=== PATIENT | male | born 1965 | race Caucasian/White ===

== ENCOUNTER 2020-01-23 23:42 | Emergency (ER) | payer OTHER ==
[~2020-01-23] VITALS: Ht 172.7 cm; Wt 79.4 kg
[2020-01-23 23:53] VITALS: BP 120/87
--- NOTE | 2020-01-23 23:53 | NUR ---
ED Nurse Note: Pt steffanie from hotel room [place] lower abd pain 8/10 x 1 month. Per EMS, pt was recently at [facility] earlier today for same complaint. ERMD contacted at [facility] for peer to peer. Pt aao x 4, ambulates with steady gait, skin intact. Pt placed in gown in bed. Awaiting ERMD at bedside. Awaiting further orders.
--- NOTE | 2020-01-24 00:01 | NUR ---
ED Nurse Note: ERMD at bedside
--- NOTE | 2020-01-24 00:14 | Emergency Room Report ---
History of Present Illness General Chief Complaint: Abdominal Pain Source: Patient Present Illness HPI This is a 54-year-old male with a history of chronic pain. 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 He also has recurrent pleural effusion. Patient presents with chief complaint abdominal pain and weakness. He said he is having nausea vomiting and diarrhea. Onset today. He said he is out of his Dilaudid. Denies any fever or chills. Pain is 10 out of 10. He was just at [facility] today and discharged an hour and a half ago. He called 911 from outside of a motel. I spoke with the ER doctor there. He had blood work done which showed hemoglobin of 8.3 which is that baseline. He was guaiac negative with rectal exam. He was at [facility] on January 06. Patient was at [place] twice today. He complaining abdominal pain but was eating a sandwich. Here he was drinking orange juice. 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 COVID-19 Screening: Negative COVID-19 COVID-19 Testing Source: [facility] Patient History Past Medical History: see triage record, old chart reviewed Past Surgical History: other Pertinent Family History: none Social History: Denies: smoking Immunizations: other Reviewed Nursing Documentation: PMH: Agreed; PSxH: Agreed Review of Systems Eye: Denies: eye pain, blurred vision ENT: Denies: ear pain, nose congestion, throat swelling Respiratory: Denies: cough, shortness of breath Cardiovascular: Denies: chest pain, palpitations Gastrointestinal: Reports: abdominal pain, diarrhea, nausea, vomiting Musculoskeletal: Denies: back pain, joint pain Skin: Denies: rash Neurological: Denies: headache, numbness Endocrine: Denies: increased thirst, increased urine Hematologic/Lymphatic: Denies: easy bruising All Other Systems: negative except mentioned in HPI Physical Exam Vital Signs Date Time Temp Pulse Resp B/P (MAP) Pulse Ox O2 Delivery O2 Flow Rate FiO2 01/23/20 23:43 98.8 90 16 120/87 (98) 99 Room Air Vitals normal Sp02 EP Interpretation: reviewed, normal General Appearance: well appearing, no apparent distress, alert Head: normocephalic, atraumatic Eyes: bilateral eye PERRL, bilateral eye EOMI ENT: hearing grossly normal, normal pharynx Neck: full range of motion, supple, no meningismus Respiratory: chest non-tender, lungs clear, normal breath sounds Cardiovascular #1: regular rate, rhythm, no murmur Gastrointestinal: normal bowel sounds, no mass, no organomegaly, no bruit, non- distended, tenderness - diffuse, soft Musculoskeletal: back normal, normal range of motion, gait/station normal Psychiatric: mood/affect normal Medical Decision Making Homeless Attestation I, The treating physician, Dr Sukhwinder Bourne, has assessed and agrees that patient is medically stable for discharge to an outpatient disposition. Diagnostic Impression: Primary Impression: Abdominal pain Qualified Codes: R10.84 - Generalized abdominal pain Additional Impressions: Anemia Qualified Codes: D64.9 - Anemia, unspecified Chronic pain Qualified Codes: G89.4 - Chronic pain syndrome ER Course Presents with exacerbation of chronic abdominal pain. He is eating and drinking here without any problem. I see no need for further work-up since he just had blood work done an hour and a half ago at [facility]. He also said he has pleural effusion but oxygenation is 99 to 100% on room air. He was talking and joking with EMS and nursing staff here. I see no respiratory distress. I see no need for an acute intervention right now. Patient wanted his biliary stent removed. I told patient that we do not do that here in the ER. He needs to follow-up with At [facility]. On the [employer] system he has multiple prescriptions from different doctors for pain medication. He just had 50 tablets of Dilaudid filled on December 28. Last Vital Signs Date Time Temp Pulse Resp B/P (MAP) Pulse Ox O2 Delivery O2 Flow Rate FiO2 01/23/20 23:43 98.8 90 16 120/87 (98) 99 Room Air Status: unchanged Disposition: HOME, SELF-CARE Condition: Stable Referrals: NOT CHOSEN IPA/,REFERRING (PCP) Patient Instructions: Abdominal Pain, Adult Additional Instructions: Follow-up with your doctor in 7 days. Follow-up with your doctor for refill your medication and evaluation for removal of your stent if needed. Return if symptoms worsen. Sukhwinder Bourne MD Jan 24, 2020 00:14
[2020-01-24 00:22] VITALS: BP 125/82
--- NOTE | 2020-01-24 00:22 | NUR ---
ER DISCHARGE NOTE: Patient is cleared to be discharged home per ERMD, pt is aox4, 99% on room air, with stable vital signs. pt was given dc instructions, pt was able to verbalize understanding, pt id band removed without complications. pt is able to ambulate with steady gait. pt took all belongings.
== END 2020-01-24 00:22 | disposition home or self-care (01) ==
LOC: EDBD 23:42 → EMR 23:59
DX: R10.84 Generalized abdominal pain (principal); D64.9 Anemia, unspecified; G89.4 Chronic pain syndrome; R53.1 Weakness; R11.2 Nausea with vomiting, unspecified; R19.7 Diarrhea, unspecified
CPT/HCPCS: 99281

== ENCOUNTER 2020-01-24 01:36 | Emergency (ER) | payer OTHER ==
[~2020-01-24] VITALS: Ht 172.7 cm; Wt 79.4 kg
[2020-01-24 01:36] VITALS: BP 112/76
--- NOTE | 2020-01-24 01:36 | NUR ---
ED Nurse Note: Patient brought in by ambulance [id number] from [facility] d/t abdominal pain and nausea, pt was seen at [facility] and discharged home 1 hour prior to arrival. Patient aao x 4 and ambulatory. Patient states abdominal pain 9/. ERMD at bedside. Patient states he wants to go to [facility]. Patient stable during assessment.
--- NOTE | 2020-01-24 01:43 | Emergency Room Report ---
History of Present Illness General Chief Complaint: Abdominal Pain Source: Patient, Medical Record, EMS Present Illness HPI Is a 54-year-old male with a history of chronic pain. He was just here and was discharged. He called 911 about a couple blocks away. He complained abdominal pain. He was just discharged from here and in [facility]. Per EMS he called 911 frequently. Complaining of generalized abdominal pain 10 out of 10. Denies any fever chills claimed that he has nausea vomiting and diarrhea. It is 10 out of 10. He is out of his Dilaudid. 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 Patient History Past Medical History: see triage record, old chart reviewed Past Surgical History: other Pertinent Family History: none Social History: Denies: smoking Immunizations: other Reviewed Nursing Documentation: PMH: Agreed; PSxH: Agreed Nursing Documentation-PMH Hx Gastrointestinal Problems: Yes Review of Systems Eye: Denies: eye pain, blurred vision ENT: Denies: ear pain, nose congestion, throat swelling Respiratory: Denies: cough, shortness of breath Cardiovascular: Denies: chest pain, palpitations Gastrointestinal: Reports: abdominal pain, diarrhea, nausea, vomiting Musculoskeletal: Denies: back pain, joint pain Skin: Denies: rash Neurological: Denies: headache, numbness Endocrine: Denies: increased thirst, increased urine Hematologic/Lymphatic: Denies: easy bruising All Other Systems: negative except mentioned in HPI Physical Exam Vital Signs Date Time Temp Pulse Resp B/P (MAP) Pulse Ox O2 Delivery O2 Flow Rate FiO2 01/24/20 01:33 97.5 108 20 112/76 (88) 98 Room Air Vitals unremarkable Sp02 EP Interpretation: reviewed, normal General Appearance: well appearing, no apparent distress, alert Head: normocephalic, atraumatic Eyes: bilateral eye PERRL, bilateral eye EOMI ENT: hearing grossly normal, normal pharynx Neck: full range of motion, supple, no meningismus Respiratory: chest non-tender, lungs clear, normal breath sounds Cardiovascular #1: regular rate, rhythm, no murmur Gastrointestinal: normal bowel sounds, no mass, no organomegaly, no bruit, non- distended, tenderness - Diffuse Musculoskeletal: back normal, normal range of motion, gait/station normal Psychiatric: mood/affect normal Medical Decision Making Homeless Attestation I, The treating physician, Dr Sukhwinder Bourne, has assessed and agrees that patient is medically stable for discharge to an outpatient disposition. Diagnostic Impression: Primary Impression: Abdominal pain Qualified Codes: R10.84 - Generalized abdominal pain Additional Impressions: Chronic pain Qualified Codes: G89.4 - Chronic pain syndrome Anemia Qualified Codes: D64.9 - Anemia, unspecified ER Course Presents with exacerbation of chronic pain. She is eating and drinking prior to discharge. I see no need for further work-up. He had blood work done at [facility] done few hours ago. I spoke with the ER doctor there. The doctor there saw the patient. Lab works at baseline. Last Vital Signs Date Time Temp Pulse Resp B/P (MAP) Pulse Ox O2 Delivery O2 Flow Rate FiO2 01/24/20 01:33 97.5 108 20 112/76 (88) 98 Room Air Status: unchanged Disposition: HOME, SELF-CARE Condition: Stable Patient Instructions: Abdominal Pain, Adult Additional Instructions: Follow-up with In 7 days. Return if symptoms worsen. Sukhwinder Bourne MD Jan 24, 2020 01:43
[2020-01-24 02:05] VITALS: BP 115/72
--- NOTE | 2020-01-24 02:05 | NUR ---
ER DISCHARGE NOTE: Patient is cleared to be discharged per ERMD, pt is aox4, on room air, with stable vital signs. pt was given dc instructions at time of depature, patient refused to leave chair and started to spit on the floor. patient started to pass gas and stated that he saw a vet instead of an MD. patient refused to sign paperwork. patient was advised to go to an alcohol rehab center however states "those dogs are not going to help me"
== END 2020-01-24 02:05 | disposition home or self-care (01) ==
LOC: EDBD 01:36 → EMR 01:53
DX: R10.84 Generalized abdominal pain (principal); G89.4 Chronic pain syndrome; D64.9 Anemia, unspecified; R11.2 Nausea with vomiting, unspecified; R19.7 Diarrhea, unspecified
CPT/HCPCS: 99283